=== PATIENT | male | born 1960 | race Caucasian/White ===

== ENCOUNTER 2020-07-08 16:40 | Outpatient (RCR) | payer BC, SELFPAY ==
[2020-07-08] MEDS: COVID-19 VACC, MRNA(PFIZER)/PF 30 MCG/0.3 ML SYRINGE IM (09:59)
[2020-07-29] MEDS: COVID-19 VACC, MRNA(PFIZER)/PF 30 MCG/0.3 ML SYRINGE IM (09:51)
== END 2020-07-08 23:59 ==
LOC: IMMUN 16:40
PROVIDERS: PCP Family Medicine; Visit Provider Family Medicine
DX: Z23 Encounter for immunization (principal)
CPT/HCPCS: 0001A; 0002A; 91300